=== PATIENT | male | born 1985 | race Caucasian/White ===

== ENCOUNTER 2017-02-23 13:57 | Emergency (ER) | payer MEDICARE, OTHER ==
[2017-02-23 14:14] LABS: Urine Bilirubin Negative (NEGATIVE); Urine Blood Negative /ul (NEGATIVE); Urine Ketone Negative (NEGATIVE); Urine Nitrite Negative (NEGATIVE); Urine Protein Negative (NEGATIVE); Urine Specific Gravity <=1.005 SP.GR. (1.005-1.030); Urine Urobilinogen Normal (NORMAL)
[2017-02-23 14:27] LABS: Urine Appearance Clear; Urine Bacteria TRACE; Urine Color Yellow; Urine RBC None Seen /hpf (0-5); Urine WBC None Seen /hpf (0-5)
[2017-02-23 14:44] LABS: Hematocrit 42.7 % (42.0-52.0); Hemoglobin 15.3 gm/dL (13.5-18.0); Mean Cell Volume 91.6 fl (78-100); Mean Corpuscular Hemoglobin 32.8 pg (27-31); Mean Corpuscular Hgb Conc 35.8 g/dl (32-36); Mean Platelet Volume 13.1 fl (6.0-9.5); Neutrophil # 3.1 K/mm3 (1.3-6.0); Neutrophil % 66.1 % (42-75.0); Platelet Count 107 K/mm3 (150-450); Red Blood Count 4.66 M/mm3 (4.7-6.0); Red Cell Distribution Width 12.1 % (11.5-14.0); White Blood Count 4.7 K/mm3 (4.0-10.5)
[2017-02-23 14:58] LABS: Anion Gap 15.8 mmol/L (6.8-13.8); BUN/Creatinine Ratio 8.5 (9.0-21.6); Bilirubin, Total 0.5 mg/dL (0.0-1.1); Ca. Corrected For Albumin 8.8 mg/dL (8.4-10.2); Calcium * 9.1 mg/dL (7.9-10.9); Potassium 4.8 mmol/L (3.4-4.6); Total Protein 7.4 gm/dL (6.2-8.2)
[2017-02-23] MEDS ORDERED: INSULIN REGULAR, HUMAN 100 UNITS/ML VIAL SC ONE (15:03)
[2017-02-23] MEDS ORDERED: INSULIN REGULAR, HUMAN 100 UNITS/ML VIAL ONE (15:05)
[2017-02-23] MEDS ORDERED: NORMAL SALINE 1,000 ML IV ONE ×2 (15:06→16:28)
[2017-02-23] MEDS ORDERED: KETOROLAC TROMETHAMINE 30 MG/ML VIAL IV ONE (15:11)
[2017-02-23] MEDS ORDERED: METOCLOPRAMIDE HCL 5 MG/ML VIAL IV ONE (15:11)
[2017-02-23] MEDS ORDERED: diphenhydrAMINE HCL 50 MG/ML VIAL IV ONE (15:11)
--- NOTE | 2017-02-23 15:12 | ERNOTE ---
Medical Problem HPI - Narrative Date of Service: 02/23/17 - General Chief Complaint: Diabetes Related Problem Time Seen by Provider: 02/23/17 15:00 Source: patient Exam Limitations: no limitations - Immun/Allergies/Home Medications Immunizations: IMMUNIZATION HX Immunizations Up to Date Yes History of Influenza Vaccine No Hx Pneumococcal Vaccination No Allergies/Adverse Reactions: Allergies C[place]ut Allergy (Severe, Verified 02/23/17 14:12) Throat Swelling Penicillins Allergy (Severe, Verified 02/23/17 14:12) Throat Swelling venom-honey bee [bee venom (honey bee)] Allergy (Verified 02/23/17 14:12) Home Medications: HOME MEDICATIONS Insulin Aspart [Novolog] 30 units SC TIDWM 02/23/17 [Last Taken Unknown] Insulin Detemir [Levemir] 100 unit SQ BID 02/23/17 [Last Taken Unknown] Paliperidone Palmitate [Invega Trinza] 546 mg IM DAILY 02/23/17 [Last Taken Unknown] Rivaroxaban [Xarelto] 15 mg PO BID 02/23/17 [Last Taken Unknown] - History of Present History Narrative: Pt. comes in with c/o increased blood sugars for 5 days since he started Invega. Pt. denies ny SOB, CP, NVD, abd pain, fever, but does state that he has a headache as well. Pt. denies that this is the worst headache ever. Pt. denies any prehospital treatment, alleviating factors, or aggravating factors. Review of Systems - Review of Systems Constitutional: Present: malaise. Absent: fever, chills, weakness, fatigue EYE: Present: no symptoms reported ENT: Present: no symptoms reported Respiratory: Present: no symptoms reported. Absent: shortness of breath, cough , wheezing Cardiology: Present: no symptoms reported. Absent: chest pain, palpitations, edema Gastrointestinal/Abdominal: Present: no symptoms reported. Absent: nausea, vomiting, diarrhea, abdominal pain Genitourinary: Present: no symptoms reported Musculoskeletal: Present: no symptoms reported. Absent: back pain, neck pain, joint pain Skin: Present: no symptoms reported. Absent: rash, change in color Neurological: Present: headache. Absent: dizziness/light-headedness, numbness, tingling All Other Systems: All systems neg except as marked - Patient's Past Medical History Patient History - Medical: Diabetes Type 2 Insulin Dependent Patient History - Cardiac/Respiratory: No pertinent hx Patient History - Cancer: No Hx of Cancer Patient History - Surgical Procedures: Cholecystectomy Patient History - Other: None - Social History Living Situations: home Psych History: No pertinent hx Alcohol Use: none Drug Use: none - Immunizations Immunizations Up to Date: Yes Hx Pneumococcal Vaccination: No History of Influenza Vaccine: No Physical Exam - Physical Exam General Appearance: Present: wd/wn, alert, no apparent distress Head Exam: Present: normal inspection, no evidence of injury Eye Exam: Normal inspection: bilateral, PERRL: bilateral, EOMI: bilateral Ears, Nose, Throat: Present: normal ENT inspection, normal pharynx Neck: Present: normal inspection, nontender. 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 Absent: pallor, skin rash ED Progress - Date and Time Seen: Date and Time: 02/23/17 16:45 Pt. upset because iv is beeping and requesting to leave informed pt. that he is critically ill and keli worsen or if he leaves and pt. is insisting on leaving - Results and Orders Patient's Lab Results:: I have reviewed the patient's lab results. - Vital Signs Patient's Vital Signs:: I have reviewed the patient's vital signs. Vital Signs: Vital Signs 02/23/17 02/23/17 14:01 14:29 Temperature 36.4 C L Pulse Rate 108 H 102 H Respiratory 12 14 Rate Blood Pressure 178/94 157/97 O2 Sat by Pulse 97 98 Oximetry - Progress/Reassessment Chief Complaint: Diabetes Related Problem Departure Clinical Impression: Hyperglycemia - Departure Disposition: Against medical advice Condition: Fair Referrals: Milton Glover MD [Primary Care Provider] -
[2017-02-23 15:15] LABS: Amylase * 30 U/L (25-115); Lipase 153 U/L (73-393)
[2017-02-23] MEDS ORDERED: diphenhydrAMINE HCL 50 MG/ML VIAL ONE (15:18)
[2017-02-23] MEDS ORDERED: KETOROLAC TROMETHAMINE 30 MG/ML VIAL ONE (15:18)
[2017-02-23] MEDS ORDERED: METOCLOPRAMIDE HCL 5 MG/ML VIAL ONE (15:18)
[2017-02-23 16:13] VITALS: BP 109/59
== END 2017-02-23 16:50 | disposition left against medical advice (07) ==
LOC: ER 13:57
DX: R73.9 Hyperglycemia, unspecified (principal); Z79.4 Long term (current) use of insulin; Z53.29 Procedure and treatment not carried out because of patient's decision for other reasons